=== PATIENT | female | born 1985 | race Asian ===

== ENCOUNTER 2023-06-24 21:47 | Emergency (ER) | payer OTHER ==
[~2023-06-24] VITALS: Ht 162.6 cm; Wt 61.2 kg
[2023-06-24 22:10] VITALS: BP 124/74
== END 2023-06-25 01:25 | disposition home or self-care (01) ==
LOC: ER 21:47
DX: S61.226A Laceration with foreign body of right little finger without damage to nail, initial encounter (principal); W25.XXXA Contact with sharp glass, initial encounter
CPT/HCPCS: 12001; 73120; 73140; 99283-25